=== PATIENT | female | born 1990 | race Caucasian/White ===

== ENCOUNTER 2019-04-10 18:12 | Emergency (ER) | payer SELFPAY ==
[2019-04-10 18:13] VITALS: BP 119/81; PULSE 117; RESP 16; TEMP 37.8; O2SAT 95; BMI 22.8
--- NOTE | 2019-04-10 18:25 | ED.VIS.GEN ---
History of Present Illness Chief Complaint: Cold Sx Informant: Patient Onset: Days - three Narrative: Patient states that 3 days ago she began have a sore throat and then sudden onset of subjective fever chills myalgias headache nasal congestion and dry cough. She notes her chest is sore from coughing. Minimal if any sputum. She has been drinking fluids. Past Medical History - Allergies and Home Meds Allergies/Adverse Reactions: Allergies No Known Allergies Allergy (Verified 04/10/19 18:12) Primary Care Physician: NOT,DEFINED [Primary Care Provider] - Smoking Status: Current every day smoker Review of Systems General: Reports: Chills, Fever, Malaise, Subjective. Denies: Sweats Eyes: Denies: Visual changes - bilaterally, Diplopia ENT: Reports: Rhinorrhea, Sore throat Cardiovascular: Reports: Chest pain. Denies: Palpitations Respiratory: Reports: Dyspnea, Cough. Denies: Dyspnea on exertion Gastrointestinal: Denies: Abdominal pain, Nausea, Vomiting, Diarrhea, Melena, Hematochezia Genitourinary: Denies: Dysuria, Hematuria, Frequency Musculoskeletal: Denies: Back pain, Extremity Pain Skin: Denies: Rash, Wounds Neurological: Denies: Headache, Weakness, Numbness Psych: Denies: Depression, Anxiety, Suicidal thoughts, Suicidal ideations Endocrine: Denies: Polyuria, Polydipsia, Heat intolerance, Cold intolerance Hematologic: Denies: Easy bruising, Easy bleeding, Lymphadenopathy Allergy: Denies: Swelling of the mouth, Swelling of the tongue Physical Exam Vital Signs/Narrative: Vital Signs Temp Pulse Resp BP Pulse Ox 04/10/19 18:13 100.1 F H 117 H 16 119/81 H 95 Inital Vital Signs reviewed: Yes General: Well nourished, Well developed, No Acute Distress Head: Normocephalic, Atraumatic Eyes: Perrl, EOMI ENT: Moist mucous membranes, Nasal congestion Neck: Supple, Nontender Cardiovascular: Regular rate, Regular rhythm, No murmurs Respiratory: No distress, CTA bilaterally, Chest nontender Abdomen: Soft, Nontender, Nondistended, Normal bowel sounds Back: Nontender, Normal Inspection Extremities: Nontender, No edema Skin: Normal color, No rash Neurological: Alert, Oriented x3, Cranial nerves II-XII grossly intact, Normal Strength, Normal Sensation Psychological: Normal affect, Normal Mood Diagnostic/Tx/Re-eval - Medical Decision Making Patient presents with influenza-like illness at peak influenza time. Her lung sounds are clear and her pulse ox is normal. She appears well-hydrated. Would recommend supportive care. She is out of the Tamiflu window. ED Disposition - Plan for ED Patient: Disposition: Home or Assisted Living Diagnosis: Influenza Instructions: INFLUENZA (Adult) Referrals: Aren Lopez MD [STAFF PHYSICIAN] - As Needed Additional Instructions: Tylenol or Motrin every 6 hours for fever and body aches. Drink plenty of fluids to keep your urine clear to light yellow. Monitor your breathing and sputum for changes. Return if worsening or concerns.
[2019-04-10 18:40] VITALS: RESP 18
== END 2019-04-10 18:42 | disposition home or self-care (01) ==
LOC: ED 18:40
PROVIDERS: Emergency Provider Emergency Medicine
DX: J11.1 Influenza due to unidentified influenza virus with other respiratory manifestations (principal); F17.200 Nicotine dependence, unspecified, uncomplicated
CPT/HCPCS: 99282